=== PATIENT | male | born 1955 | race Hispanic/Latino ===

== ENCOUNTER 2024-01-25 15:21 | Outpatient (RCR) | payer MEDICARE | END 2024-02-08 | LOC: PT 15:21 | PROVIDERS: ATTEND Specialist | DX: M16.12 Unilateral primary osteoarthritis, left hip (principal); S86.912D Strain of unspecified muscle(s) and tendon(s) at lower leg level, left leg, subsequent encounter; M25.562 Pain in left knee; M62.81 Muscle weakness (generalized); R26.2 Difficulty in walking, not elsewhere classified ==